=== PATIENT | male | born 1995 | race Caucasian/White ===

== ENCOUNTER 2024-07-04 06:25 | Emergency (ER) | payer SELFPAY ==
[~2024-07-04] VITALS: Ht 175.3 cm; Wt 72.6 kg
[2024-07-04 07:27] VITALS: BP 138/77; TEMP 98; O2SAT 97
== END 2024-07-04 07:28 | disposition home or self-care (01) ==
LOC: ER 06:37
DX: R06.02 Shortness of breath (principal); Z59.00 Homelessness unspecified
CPT/HCPCS: A4606; A4663

== ENCOUNTER 2024-07-04 19:35 | Emergency (ER) | payer SELFPAY ==
[~2024-07-04] VITALS: Ht 172.7 cm; Wt 81.6 kg
[2024-07-04 20:30] VITALS: O2SAT 98
== END 2024-07-05 00:10 | disposition left against medical advice (07) ==
LOC: ER 19:35
DX: R55 Syncope and collapse (principal); Z53.21 Procedure and treatment not carried out due to patient leaving prior to being seen by health care provider
CPT/HCPCS: A4606; A4663